=== PATIENT | female | born 1945 | race Caucasian/White ===

== ENCOUNTER 2018-10-13 13:34 | Outpatient (CLI) | payer MEDICARE, SELFPAY ==
--- NOTE | 2018-10-13 06:45 | DI.RAD_ITS ---
SYMPTOM/DIAGNOSIS: LUMBAR RADICULOPATHY C-ARM: Fluoroscopy Time: 43.2 seconds C-arm fluoroscopy was utilized by Dr. Hodgson. Please see Dr. Hodgson's procedure note. Hard copies show injection in neural foramen at what appears to be the L 4-5 level. Markers indicate this is the right side.
[2018-10-13 13:41] VITALS: BP 128/73; PULSE 73; RESP 20; TEMP 36.5; O2SAT 97
[2018-10-13] MEDS: methylPREDNISolone ACETATE 40 MG/ML VIAL IJ (14:14)
[2018-10-13] MEDS: Omnipaque 240 MG/ML 50 ML BTL IJ (14:15)
[2018-10-13 14:16] VITALS: BP 127/74; PULSE 68; RESP 16; O2SAT 96
--- NOTE | 2018-10-13 14:20 | PDOC.PAIN ---
Pain Clinic Procedure Note Current Active Problems Problem Status Onset Lumbar back pain with radiculopathy affecting right lower extremity Chronic LUMBAR / SACRAL TRANSFORAMINAL INJECTION ALECIA FRAUSTO has been referred to the [facility] for a transforaminal nerve root block and steroid injection. COMMENTS: Patient has back and right lower extremity pain to her foot. She previously had a right L4 transforaminal steroid injection which she said gave her good relief. That was over a year and half ago. Her symptoms are somewhat different now. Patient was interviewed and the medical record reviewed. There were no medical, pharmacologic, radiographic or other structural contraindications to attempting fluoroscopically guided transforaminal nerve root block and epidural steroid injection. Risks and expected side effects as well as potential benefit of the procedure were reviewed and voiced concerns addressed. The printed consent form was signed and witnessed. Standard time-out procedure was performed. Patient was placed in the prone position on the fluoroscopy table and automated blood pressure cuff and pulse oximeter applied. Fluoroscopy was utilized to identify the {right} neural foramen between L4 and 5 . A skin esequiel was made for the needle insertion site. A Chlorhexadine prep was carried out, and sterile drapes were applied. Local anesthesia was achieved in the skin and subcutaneous tissues. A 22 gauge curved tip spinal needle was then inserted, advanced with fluoroscopic guidance into the neural foramen, confirmed on the lateral view. After negative aspiration, 2 ml of Omnipaque 240 was injected confirming position in A/P and lateral views. This showed a good spread of dye transforaminally into the epidural space. There was no vascular update with contrast injection under continuous fluoroscopy and digital substraction. 60 mg of Depo-Medrol was injected, followed by 0.5 ml of 1% Xylocaine flush for the nerve root block, as well. There was no unusual discomfort expressed.The needle was withdrawn. The patient tolerated the procedure well. A Band-Aid was applied. Vital signs were stable throughout the procedure and were as recorded in nursing records. If given, dosages of intravenous drugs for anxiolysis and analgesia were documented in nursing records. Follow up plans and appointments were discussed. Post procedure instruction was given as documented in nursing records and patient was discharged in the care of an identified rivet driver. COMMENTS: Follow-up as needed. Would consider repeating if she gets good long-lasting relief otherwise would obtain an updated MRI since her symptoms are considered interlaminar with a catheter as an option as well. CC: Tanesha Cullen H
--- NOTE | 2018-10-13 14:23 | PDOC.PAIN_ITS ---
Pain Clinic Procedure Note Current Active Problems Problem Status Onset Lumbar back pain with radiculopathy affecting right lower extremity Chronic LUMBAR / SACRAL TRANSFORAMINAL INJECTION ALECIA FRAUSTO has been referred to the [facility] for a transforaminal nerve root block and steroid injection. COMMENTS: Patient has back and right lower extremity pain to her foot. She previously had a right L4 transforaminal steroid injection which she said gave her good relief. That was over a year and half ago. Her symptoms are somewhat different now. Patient was interviewed and the medical record reviewed. There were no medical, pharmacologic, radiographic or other structural contraindications to attempting fluoroscopically guided transforaminal nerve root block and epidural steroid injection. Risks and expected side effects as well as potential benefit of the procedure were reviewed and voiced concerns addressed. The printed consent form was signed and witnessed. Standard time-out procedure was performed. Patient was placed in the prone position on the fluoroscopy table and automated blood pressure cuff and pulse oximeter applied. Fluoroscopy was utilized to identify the {right} neural foramen between L4 and 5 . A skin esequiel was made for the needle insertion site. A Chlorhexadine prep was carried out, and sterile drapes were applied. Local anesthesia was achieved in the skin and subcutaneous tissues. A 22 gauge curved tip spinal needle was then inserted, advanced with fluoroscopic guidance into the neural foramen, confirmed on the lateral view. After negative aspiration, 2 ml of Omnipaque 240 was injected confirming position in A/P and lateral views. This showed a good spread of dye transforaminally into the epidural space. There was no vascular update with contrast injection under continuous fluoroscopy and digital substraction. 60 mg of Depo-Medrol was injected, followed by 0.5 ml of 1% Xylocaine flush for the nerve root block, as well. There was no unusual discomfort expressed.The needle was withdrawn. The patient tolerated the procedure well. A Band-Aid was applied. Vital signs were stable throughout the procedure and were as recorded in nursing records. If given, dosages of intravenous drugs for anxiolysis and analgesia were documented in nursing records. Follow up plans and appointments were discussed. Post procedure instruction was given as documented in nursing records and patient was discharged in the care of an identified school boat driver. COMMENTS: Follow-up as needed. Would consider repeating if she gets good long- lasting relief otherwise would obtain an updated MRI since her symptoms are considered interlaminar with a catheter as an option as well. CC: Tanesha Cullen H
[2018-10-13] MEDS: Bupivacaine 0.5% Pres-Free 10 ML VIAL IJ (14:25)
== END 2018-10-13 13:54 ==
PROVIDERS: PCP Internal Medicine; Visit Provider Anesthesiology Pain Medicine
DX: M54.17 Radiculopathy, lumbosacral region (principal)
CPT/HCPCS: 64483; 72100; J1030; Q9967

== ENCOUNTER 2019-01-20 11:29 | Outpatient (CLI) | payer MEDICARE, SELFPAY ==
--- NOTE | 2019-01-20 06:00 | DI.RAD_ITS ---
SYMPTOM/DIAGNOSIS: LUMBAR EPIDURAL STEROID INJECTION, LUMBAR RADICULOPATHY C-ARM: Fluoroscopy Time: 18.1 seconds Fluoroscopy was utilized by Dr. Glover during the performance of a lumbar epidural steroid injection. Please refer to the procedure report for complete details.
[2019-01-20 11:41] VITALS: BP 125/81; PULSE 66; RESP 18; TEMP 36.9; O2SAT 97
[2019-01-20] MEDS: Omnipaque 240 MG/ML 50 ML BTL IJ (12:14)
[2019-01-20] MEDS: methylPREDNISolone ACETATE 40 MG/ML VIAL IM (12:17)
[2019-01-20 12:18] VITALS: BP 136/70; PULSE 74; RESP 17; O2SAT 97
--- NOTE | 2019-01-20 12:24 | PDOC.PAIN ---
Pain Clinic Procedure Note Current Active Problems Problem Status Onset Lumbar back pain with radiculopathy affecting right lower extremity Lumbar Epidural Steroid Injection Procedure Note COMMENTS:Right sided low back and leg pain ALECIA FRAUSTO has been referred to the [facility] for lumbar epidural steroid injection. The patient was greeted by the nurse who verified patients name and . Patient was then taken to the fluoroscopy suite. The patient was interviewed and the medial record reviewed. There were no medical, pharmacologic, radiographic, or other structural contraindications to attempting fluoroscopically guided lumbar epidural steroid injection. Risks and expected side effects as well as potential benefits of the procedure were reviewed and voiced concerns expressed. The patient consent form was signed and witnessed. Standard patient time-out procedure was performed. The patient was placed in the prone position on the fluoroscopy table and automated blood pressure cuff and pulse oximeter applied. The skin entry point for entering/approaching the epidural space at the right side of the L5-S1 and marked. Following thorough chlorhexadine preparation of the skin and draping and 1% lidocaine infiltration of the skin entry point and subcutaneous tissues, a 18 gauge Touhy needle was placed under fluoroscopic guidance and with loss of resistance technique into the epidural space. Needle tip placement and depth were aided and confirmed by fluoroscopy. There was no paresthesia or return of blood or CSF through the needle. 1 cc's of Omnipaque 240 was injected with clear epidural spread confirmed with fluoroscopy. 80mg depomedrol was injected. There was not any unusual discomfort expressed by ALECIA FRAUSTO. Patient's vital signs were stable throughout the procedure and were as recorded in nursing records. Follow up plans and appointments were discussed with patient. Post procedure instruction was given as documented in nursing records and having met discharge criteria and was discharged from the [facility]. COMMENTS: If this procedure is helpful, it can be completed up to 3 times per 12 months.
== END 2019-01-20 11:49 ==
PROVIDERS: PCP Internal Medicine; Visit Provider Preventive Medicine Occupational Medicine
DX: M54.17 Radiculopathy, lumbosacral region (principal)
CPT/HCPCS: 62323; 72100; J1030; Q9967

== ENCOUNTER 2022-12-15 10:24 | Outpatient (CLI) | payer MEDICARE, SELFPAY ==
--- NOTE | 2022-12-15 09:30 | DI.RAD_ITS ---
Exam(s) XR KNEE RT 4V AP,LAT,TREE,PAT EXAM: XR KNEE RT 4V AP,LAT,TREE,PAT CLINICAL HISTORY: right knee pain. TECHNIQUE: 2D digital imaging was performed. Three views. COMPARISON: CR XR KNEE 3V RT from 07/14/2022 FINDINGS: BONES: Total knee prosthesis, unchanged in alignment appear. No acute fracture is present. No bony d estructive lesion is seen. JOINTS: A small joint effusion is seen. SOFT TISSUE: Normal. IMPRESSION: Stable appearance of total knee prosthesis. DATA REPOSITORY: RADIATION DOSE DELIVERED:
== END 2022-12-15 10:25 | disposition home or self-care (01) ==
LOC: DIORS 10:24
PROVIDERS: PCP Internal Medicine; Referring Provider Internal Medicine; Visit Provider Student in an Organized Health Care Education/Training Program
DX: Z96.651 Presence of right artificial knee joint (principal); T84.84XA Pain due to internal orthopedic prosthetic devices, implants and grafts, initial encounter
CPT/HCPCS: 20610; 99203; 73564

== ENCOUNTER 2022-12-15 13:39 | Outpatient (REF) | payer MEDICARE, SELFPAY ==
[2022-12-15 14:02] LABS: Crystals (BF) No Crystals seen
[2022-12-15 14:04] LABS: Clarity Clear; Nucleated Cells 260 uL (0)
[2022-12-15 14:11] LABS: Mononuclear Cells 96 %; Polynuclear Cells 4 %
== END 2022-12-15 13:40 | disposition home or self-care (01) ==
LOC: LBN 13:39
PROVIDERS: PCP Internal Medicine; Visit Provider Student in an Organized Health Care Education/Training Program
DX: T84.84XA Pain due to internal orthopedic prosthetic devices, implants and grafts, initial encounter (principal); Z96.651 Presence of right artificial knee joint
CPT/HCPCS: 87070; 87205; 89051; 89060

== ENCOUNTER 2023-01-02 00:19 | Outpatient (CLI) | payer MEDICARE, SELFPAY ==
--- NOTE | 2023-01-02 07:45 | DI.CT_ITS ---
Exam(s) CT LOWER EXTREMITY RT WO EXAM: CT LOWER EXTREMITY RT WO CLINICAL HISTORY: PAIN,?LOOSENING, HX TOTAL RT KNEE REPLACEMENT, PAIN, Z96.651, T84.84XA. TECHNIQUE: Imaging Protocol: Axial computed tomography images with coronal and sagittal reformatted images were created and reviewed. CONTRAST MATERIAL: None COMPARISON: X-rays from 12/15/2022 FINDINGS: There is a right knee prosthesis noted. No fractures evident. No obvious prominent joint effusion. There does not appear to be obvious luce ncy around the femoral component of the prosthesis. Subjacent to the tibial component there is subtle linear intraosseous lucency which is predominately laterally located. May represent loosening. A similar lucent area is not seen around this stem of t he prosthesis. The fibular head and neck appear unremarkable. IMPRESSION: Subtle evidence of possible loosening of the tibial component at the plateau level.. RADIATION DOSE DELIVERED: 417.96mGy.cm Total DLP DATA REPOSITORY: All CT scans at this facility are submitted to the National Radiology Data Registry (NRDR) Dose Index Registry (DIR) with the [employer] ([employer]). RADIATION OPTIMIZATION: All CT scans at this facility use at least one of these dose optimization te chniques: automated exposure control; mA and/or kV adjustment per patient size (includes targeted exa ms where dose is matched to clinical indication); or iterative reconstruction.
== END 2023-01-02 00:39 ==
LOC: DI 00:19
PROVIDERS: PCP Internal Medicine; Visit Provider Student in an Organized Health Care Education/Training Program
DX: T84.84XA Pain due to internal orthopedic prosthetic devices, implants and grafts, initial encounter (principal); Z96.651 Presence of right artificial knee joint
CPT/HCPCS: 73700

== ENCOUNTER 2023-02-26 04:59 | Outpatient (CLI) | payer MEDICARE, SELFPAY ==
[2023-02-26 16:17] LABS: HCT 39.9 % (36.0-46.0); HGB 13.2 g/dL (11.2-15.7); MCH 30.9 pg (27.0-33.0); MCHC 33.1 % (32.0-36.0); MCV 93 fL (80-95); MPV 9.2 fL (8.0-11.0); Platelet Count 244 10^3/uL (130-400); RBC 4.27 10^6/uL (3.93-5.22); RDW 12.3 % (11.7-14.6); RDW-SD 42.5 fL; WBC 5.78 10^3/uL (4.4-10.8)
[2023-02-26 17:03] LABS: Anion Gap 7.8 mmol/L (3-11); BUN 25 mg/dL (7-18); CO2 28.2 mmol/L (21.0-32.0); CREATININE 0.8 mg/dL (0.55-1.02); Calcium 9.4 mg/dL (8.5-10.1); Chloride 105 mmol/L (98-107); Estimated GFR 75.37 (mL/min/1.73m2); Glucose 96 mg/dL (74-106); Potassium 4.6 mmol/L (3.5-5.1); Sodium 141 mmol/L (136-145)
== END 2023-02-26 05:00 | disposition home or self-care (01) ==
LOC: LBO 04:59
PROVIDERS: PCP Internal Medicine; Visit Provider Student in an Organized Health Care Education/Training Program
DX: T84.032A Mechanical loosening of internal right knee prosthetic joint, initial encounter (principal); T84.84XA Pain due to internal orthopedic prosthetic devices, implants and grafts, initial encounter; Z01.818 Encounter for other preprocedural examination; Z96.651 Presence of right artificial knee joint; M25.561 Pain in right knee
CPT/HCPCS: 36415; 80048; 85027

== ENCOUNTER 2023-03-10 10:56 | Observation (INO) | payer MEDICARE, SELFPAY ==
[2023-03-10] VITALS (13 sets, daily range): BP systolic 101–208; BP diastolic 58–115; PULSE 59–78; RESP 14–20; TEMP 36–37.2; O2SAT 91–97; BMI 29.2
--- NOTE | 2023-03-10 | DI.RAD_ITS ---
Exam(s) XR KNEE RT 2V AP,LAT EXAM: XR KNEE RT 2V AP,LAT INDICATION: s/p Revision R TKA. COMPARISON: CR XR KNEE RT 4V AP,LAT,TREE,PAT from 12/15/2022 TECHNIQUE: 2D digital imaging was performed. Two views. Portable FINDINGS: Patient is status post revision of previously noted right knee prosthesis. The alignment appears sat isfactory. Residual post surgical air noted in soft tissues. DATA REPOSITORY: RADIATION DOSE DELIVERED:
[2023-03-10] MEDS: Celecoxib 200 MG CAP 400 MG PO (11:38)
[2023-03-10] MEDS: Acetaminophen 500 MG TAB 1000 MG PO ×2 (11:39→20:12)
[2023-03-10] MEDS: Gabapentin 300 MG CAP PO (11:39)
[2023-03-10] MEDS: Lactated Ringers 1,000 ML 80 ML IV ×2 (12:11→23:39)
--- NOTE | 2023-03-10 12:14 | W.ANESPRE ---
General Info Date of Service Date Performed: 03/10/23 Height: 4 ft 11 in Weight: 65.6 kg Body Mass Index (BMI): 29.2 Surgical Procedure: Operation Date: 03/10/23 14:40 Proposed Procedure Side Surgeon p Knee Total Revision, Attune Right Daryl Azul MD Meds Allergies and Home Medications Allergies Allergy/AdvReac Type Severity Reaction Status Date / Time epinephrine Allergy Unknown Racing Verified 03/10/23 11:23 Heart oxycodone Allergy Unknown Nausea Verified 03/10/23 11:23 Home Medication Medication Instructions Recorded multivitamin (Daily Value tablet) 1 ea PO DAILY 04/27/17 albuterol sulfate 90 mcg/actuation 2 puff inhalation .q4-q6 PRN 09/23/18 aerosol inhaler (Ventolin HFA) calcium carbonate 600 mg calcium 600 mg PO HS 09/23/18 (1,500 mg) tablet (Calcium) fluticasone propionate 50 1 spray intranasal DAILY PRN 09/23/18 mcg/actuation nasal spray,suspension lorazepam 1 mg tablet 1 mg PO Q8H PRN PRN 09/23/18 citalopram 20 mg tablet (Celexa) 20 mg PO BID 10/14/22 enoxaparin 40 mg/0.4 mL 40 mg subcut DAILY 10/14/22 subcutaneous syringe gabapentin 600 mg tablet 600 mg PO DAILY 10/14/22 omeprazole 40 mg capsule,delayed 40 mg PO DAILY 12/15/22 release pramipexole 0.75 mg tablet 0.75 mg PO HS 12/15/22 acetaminophen 500 mg capsule 500 mg PO Q6H PRN 02/26/23 ibuprofen 600 mg tablet 600 mg PO Q6H PRN 02/26/23 losartan 50 mg tablet 50 mg PO BID 02/26/23 vitamin B12 2,500 mcg-folic acid 1 tab PO DAILY 02/26/23 400 mcg disintegrating tablet Current Visit Medications: Current Medications Generic Name Dose Route Start Last Admin Trade Name Freq PRN Reason Stop Dose Admin Acetaminophen 1,000 mg 03/10/23 06:00 03/10/23 11:39 Acetaminophen 500 Mg Tab PO 1,000 mg PREOP CHECO Administration Celecoxib 400 mg 03/10/23 06:00 03/10/23 11:38 Celecoxib 200 Mg Cap PO 400 mg PREOP CHECO Administration Gabapentin 300 mg 03/10/23 06:00 03/10/23 11:39 Gabapentin 300 Mg Cap PO 300 mg PREOP CHECO Administration Tranexamic Acid 1,000 mg/ 60 mls @ 360 mls/hr 03/10/23 06:00 Sodium Chloride IVPB 03/10/23 18:00 PREOP CHECO Ringer's Solution 1,000 mls @ 80 mls/hr 03/10/23 06:00 03/10/23 12:11 IV 04/08/23 23:59 80 mls/hr INFUSION CHECO Administration Cefazolin Sodium/Dextrose 2 gm in 50 mls @ 100 mls/hr 03/10/23 06:00 Ancef Duplex IVPB 04/08/23 23:59 PREOP CHECO IV Miscellaneous Supplies 1 each 03/10/23 06:00 Iv Access IV 04/08/23 23:59 DIRECTED CHECO Sodium Chloride 0 ml 03/10/23 06:00 Normal Saline Flush 10 Ml Syr IV 04/08/23 23:59 PRN PRN Sodium Chloride 0 ml 03/10/23 06:00 Normal Saline 10 Ml Vial IJ 04/08/23 23:59 DIRECTED PRN Sterile Water 0 ml 03/10/23 06:00 Water,Injection,Sterile 10 Ml Vial IJ 04/08/23 23:59 DIRECTED PRN PFSH Active Problems Active Problems: Problem Status Onset Code Lumbar back pain with radiculopathy affecting right lower extremity M54.17 History of total right knee replacement 10/22/21 Z96.651 Painful total knee replacement, right T84.84XA, Z96.651 Loose right total knee arthroplasty T84.032A Medical History Medical History Arthritis Back pain Benign essential HTN Carpal tunnel syndrome of right wrist Cataract Chronic fatigue syndrome DVT (deep venous thrombosis) Hand joint pain Hip pain Hyperlipidemia 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 Low back pain Movement disorder Neck pain Neuropathy JANIA (obstructive sleep apnea) not on CPAP or BiPAP - has not had testing recently Overweight Pain in left knee Posterior rhinorrhea Pulmonary embolism Restless legs Right leg pain Right upper quadrant pain Sleep disorder Snoring Surgical History Surgical History ANKLE REPAIR (01/29/10) right ankle, ORIF BACK SURGERY H/O colonoscopy (10/24/05) H/O right knee surgery (05/28/10) meniscus HAND SURGERY Right DeQuervains release History of appendectomy 07/2021 History of arthroscopy of left knee 03/2018 History of carpal tunnel surgery (03/31/13) History of endoscopy History of kyphoplasty T12 JAW SURGERY Per pt. states they moved my lower jaw forward in the mid 80's Open Carpal Tunnel release S/P trigger finger release RRF, RMF, LMF Status post laparoscopy Ureteroneocystostomy with cystoscopy and ureteral stent placement Status post right foot surgery Right great toe joint Tonsillectomy Tobacco Smoking/Tobacco Use Status: Former Tobacco Use Alcohol Alcohol Intake: current Alcohol intake frequency: holidays/special occasions only Substance Use Substance use: Never Substance use type: does not use Vital Signs and Lab Results Vital Signs Most Recent Vital Signs in EMR: Most Recent Vital Signs Temp Pulse Resp BP Pulse Ox 36.7 C 65 17 208/87 H 97 03/10/23 11:40 03/10/23 11:40 03/10/23 11:40 03/10/23 11:40 03/10/23 11:40 Lab Results Blood Type / Crossmatch: No Data to Display Complete Blood Count: White Blood Count 5.78 10^3/uL (4.4-10.8) 02/26/23 15:30 Red Blood Count 4.27 10^6/uL (3.93-5.22) 02/26/23 15:30 Hemoglobin 13.2 g/dL (11.2-15.7) 02/26/23 15:30 Hematocrit 39.9 % (36.0-46.0) 02/26/23 15:30 Platelet Count 244 10^3/uL (130-400) 02/26/23 15:30 Complete Metabolic Panel: Sodium 141 mmol/L (136-145) 02/26/23 15:30 Potassium 4.6 mmol/L (3.5-5.1) 02/26/23 15:30 Chloride 105 mmol/L (98-107) 02/26/23 15:30 Carbon Dioxide 28.2 mmol/L (21.0-32.0) 02/26/23 15:30 BUN 25 mg/dL (7-18) H 02/26/23 15:30 Creatinine 0.8 mg/dL (0.55-1.02) 02/26/23 15:30 Est GFR (CKD-EPI 2020) 75.37 (mL/min/1.73m2) 02/26/23 15:30 Calcium 9.4 mg/dL (8.5-10.1) 02/26/23 15:30 Glucose 96 mg/dL (74-106) 02/26/23 15:30 Liver Function Panel: No Data to Display Coagulation Panel: No Data to Display Cardiac Panel: No Data to Display Arterial Blood Gas: No Data to Display Venous Blood Gas: No Data to Display Pancreas Panel: No Data to Display Thyroid Panel: No Data to Display Infectious Disease: No Data to Display Blood Cultures: No Data to Display Toxicology Panel: No Data to Display Anesthesia Assessment and Plan Anesthesia History Personal History: PONV Family History: No Family History of Anesthesia Complications and Family History Unknown Exercise Tolerance Exercise Tolerance: Metabolic Equivalents>4 Pertinent Negatives Pertinent Negatives: No Symptoms of GERD, No Major Cardiovascular Symptoms or Complaints, No Major Pulmonary Symptoms or Complaints and No History of CVA/TIA Cardiac & Pulmonary Exam Cardiac Exam: Normal S1/S2 Heart Sounds Pulmonary Exam: Clear Bilateral Breath Sounds Cardiac and Pulmonary Comment:: DVT and sudhir PEs postop Implantable Cardiac Device Does patient have a Pacemaker or an ICD?: No Airway Exam Known Difficult Airway: No Mallampati Class: 2 Mouth Opening: Normal (> 3cm) Thyromental Distance: Greater than 3 cm Neck Range of Motion: Limited ROM Neck Circumference: Normal Teeth Condition: Normal Dentition ASA Classification ASA Score: ASA 2 Emergency Case?: No NPO Status NPO Status: NPO Clears >2 hours, Solids >8 hours and NPO Clear Liquids>2 hours Anesthesia Plan Resuscitation Status: Full Code Anesthesia Technique: Spinal Anesthesia Airway Planned: Natural Airway Pain Management: Surgeon and patient request nerve block Monitors Used: Standard Monitors Preoperative Comments:: GETA back up
[2023-03-10] MEDS: ceFAZolin 2 GM/50 ML BAG IVPB (13:00)
--- NOTE | 2023-03-10 13:41 | W.ANESNERVE ---
Nerve Block Single Injection Procedure Date and Time Date Performed: 03/10/23 Procedure Start: 12:30 Location Where Procedure Performed Procedure Location: Day Surgery Unit Reason Performed: Postoperative Analgesia Requesting Provider: Daryl Azul Timeout Performed Timeout Performed: Yes Monitoring Used ECG, Blood Pressure, SpO2 and See EMR for corresponding vital signs Sterility Sterility: Hand Hygiene, Surgical Cap, Surgical Mask, Sterile Gloves, Sterile Drape/Sheet and Chlorhexidine Sedation Given During Procedure Sedation Given (Indicate Dose Given): Versed IV Dose:: 2 mg Patient Mental Status Patient Mental Status: Sedate with meaningful communication Nerve Block 1st Nerve Block: Laterality: Right Block Type: Adductor Canal Ultrasound Image Saved?: Yes Needle / Catheter Used: 100mm SonoPlex II Local Anesthetic Bolus (Indicate Dose Given): Lidocaine used for local infiltration of skin, Injected in 3-5ml increments after negative blood aspiration and Bupivacaine 0.25% Dose:: 15 ml Additives (Indicate Dose Given): None Ultrasound: Sterile probe cover and gel used Nerve Stimulator: Not Used Paresthesia: None Procedure Tolerated: No Complications and Patient tolerated well Procedure Outcome: Successful Performed By: Dana Aguero
--- NOTE | 2023-03-10 16:33 | ROE_ITS ---
Date of service: 03/10/23 Time of Service: 13:20 Operative Note Operative Note DATE OF PROCEDURE: 03/10/23 PRE-OP DIAGNOSIS: Painful Right Knee Replacement with Arthrofibrosis POST-OP DIAGNOSIS: other (Loose tibial component, subtle horizontal fracture of posterior tibia) PROCEDURE: Revision right knee replacement, all 3 components SURGEON: Daryl Azul KNITTING MACHINE TENDER: Olga López ANESTHESIA TYPE: Spinal Refer to Anesthesia Record ESTIMATED BLOOD LOSS: 300 PATHOLOGY: none sent TOURNIQUET TIME: 34 COMPLICATIONS: Other (Small horizontal fracture of proximal-posterior tibia, un clear if present prior to surgery or from removal of component) Patient was transported to: PACU Patient's condition: stable Implants: Depuy Attune Revision Femoral Component, Size 4 - 4mm distal offset, Medial and Lateral - 4mm posterior offset, Medial and Lateral - 35mm cementless sleeve - [id number] cementless stem Depuy Attune Revision Rotating Platform Tibial Component, Size 4 - 31mm cementless sleeve - [id number] cementless stem Depuy Attune Patella Component, 32mm Indications: I have seen Bri in clinic for symptoms of a painful and quite stiff right knee replacement. [place] has exhausted nonoperative methods and was having significant limitations in daily function and desired better function and less pain. I discussed the technical details of a revision knee replacement. I explained the risks of the procedure to include, but not limited to, bleeding, infection, pain, stiffness, fracture, damage to nerves and vessels, damage to muscles and tendons, loosening, need for repeat procedure, blood clot and cardiopulmonary demise. Despite these risks, Bri elected to proceed. Findings: There was some loosening, debonding of the cement from the tibia. There was dense adhesive scar tissue seen throughout. After removal of the tibial tray there was a subtle fracture noted of the posterior lip of the proximal tibia - unclear if present previously or caused during implant removal. There was significant remnant thickness of the patella with bone overgrowth over the lateral edge. Aggressive synovectomy was performed and a revision knee replacement was performed of the tibia, femur, and patella. Procedure Description: Bri was greeted in the preoperative holding area where the correct side was identified and marked. The consent was reviewed with the patient and signed. The history and physical was updated. All questions were answered. Preoperative mediacations were administered: Acetaminophen 1000mg, Celebrex 400mg, and Gabapentin 300mg. An adductor canal block was then administered by the anesthesia team. Bri was taken back to the operating room. A spinal anesthestic was then administered. The patient was placed into the supine position on the operating room table. A nonsterile tourniquet was placed high onto the leg but only used for cementing. Posts were placed for positioning during the procedure. All bony prominences were well padded. Prophylactic antibiotics in the form of Cefazolin were administered. 1g of Tranxemic Acid was given intravenously within 30 minutes of incision. The right leg was then prepped with Chloraprep and draped in a standard fashion with impervious stockinette. A second prep with Chloraprep was performed prior to application of Iodine impregnated skin protection. A timeout to confirm correct identity, side and site, procedure, allergies, anesthesia, and medical concerns was performed. With the knee in some flexion, the previous midline incision was incised. Full thickness skin flaps were raised once the extensor mechanism was encountered. These were raised medially and laterally. Any bleeding was controlled with electrocautery. Once the extensor mechanism was fully exposed, a medial parapatellar arthrotomy was performed in a flexed position. There is no defect noted of the extensor mechanism except for some shortening of the quadriceps tendon. All bleeding from the arthrotomy and the geniculate arteries was coagulated. A medial subperiosteal peel was performed with electrocautery to the midcoronal plane. The entire medial tibial plateau was exposed. There was dense adhesive scar tissue throughout the entirety of the knee. An aggressive synovectomy was performed utilizing 2 Allis and 2 Alberta clamps throughout the entirety of the knee. This was quite adherent anteriorly where I released the overlying synovium and attachments from the anterior femur to free up the anterior pouch. Additionally there is dense tissue seen in the gutters medially and laterally which was resected after protecting surrounding collateral ligaments and tissues. This allowed better mobility of the knee and better visualization of the implants and the implant?bone interface. There was no apparent infection. There was no purulence. The polyethylene was removed with an osteotome and it did show pitting within the polyethylene irregularity that was not expected to be seen. There is no gross loosening of the components apparent. Starting with the femur, I used a flexible single-sided chisel to free the implant from the underlying bone. This was done around the entirety of the femoral component. I then utilized a bone tamp to remove the femoral component. There was no significant bone loss except around the box, medial aspect of the lateral femoral condyle and lateral aspect of the medial femoral condyle. Attention was then turned to the tibia. Once again I utilized flexible osteotomes. There is no significant adherence of the implant medially. There was some laterally and then some more posteriorly. I worked systematically around the tibial component trying to free up cement. I then utilized a bone tamp and osteotome to remove the tibial component. This came out with no significant adherence of the cement to the implant anteriorly but there was some posteriorly. With the implant removed the tibia was inspected. There was a crack seen in the posterior tibia. This ran about 1 cm in depth and ran horizontally across the back of the tibia, approximate 50% of the width of the posterior tibia. The bone in this area was flexible but it was not truly displaced nor unstable. This would be bridged with the next implant and therefore I did not investigate it much more to either determine instability or try to fix it. I focused on removing extra cement from within the tibia. This was done utilizing a set of osteotomes and rongeur's. Once all the cement was removed both the femur and the tibia were irrigated with the pulse lavage to ensure that all cement components were removed from the bone. I then reamed the tibia utilizing a machine shorthand teacher up to size 14 mm reamer. The proximal tibia was then broached for a sleeve, up to size 31 mm. The trial component was inserted, rotation set and locked and keel punched. Attention was then turned to the femur. Once again, the canal was reamed with a machine shorthand teacher. This was taken out to a size 12 mm where there was notable interference of the reamer. Once again, I broached for a sleeve, size 35 mm, planning to distalize the femur 4 mm. With the sleeve in position the distal femur was cut to a flat surface. Extension and flexion gaps were then balanced at 10 mm of polyethylene thickness. The flexion gap was utilized to determine rotation for the femoral component which was pinned into position. Cutting block was utilized to prepare the distal femur. There was some gap of the posterior condyles so 4 mm augments were cut. The remainder of the cuts were performed including the notch cut without difficulty. Trial components were then placed and the knee was taken through range of motion which showed excellent stability to extension, flexion, mid flexion. There was excellent range of motion. The patella was tracking although the patella did have deformity to it. The knee was then brought into extension and the patella was investigated. This showed the patellar component was overridden by bone laterally and the patella had significant thickness, approximately 19 mm. Using a freehand technique, this was resected to a flat surface with at least 13mm of thickness remaining. Any remaining cement from the lug holes was removed. The size 32 patella fit the best. This was oriented and then clamped into position. The lugs were drilled. The trial components were removed. The final components, except for the polyethylene were opened on the back table. The periosteal and capsular tissues, especially posteriorly, around the knee were then systematically injected with a periarticular cocktail consisting of 246mg of Ropivacaine, 0.5mg of Epinephrine, 0.08mg of Clonidine, and 30mg of Ketorolac, diluted to 100cc.. The tourniquet was then inflated to 275mmHg. The knee was thoroughly irrigated with a pulse lavage and dried. On the back table, the implants were opened. The femoral and tibial components were assembled with the correct amount of torque. The cement was mixed. 2 batches of medium viscosity cement were prepared with vacuum assistance. After the cement was ready a small amount was placed on to the back side of the tibial component at the keel but not onto the porous coating of the sleeve. The posterior aspect of the femoral component was also coated cement up to the level of the sleeve. Cement was manual pressurized and impregnated into the cut surface of the tibia ensuring none mated into the canal. The tibial component was then inserted into the cut surface and impacted into position. Excess cement was removed and the component was reimpacted. Again, excess cement was removed and our attention was then turned to the femur. The femoral cut surface was once again dried and cement was manually impacted into the cut surface. The femoral component was lined with the lug holes and impacted. Excess cement was removed. It was ensured to be down against the cut surface. The trial poly ethylene was then inserted and the leg was brought out into full extension for the duration of the cement curing process, approximately 18min. Cement was lastly manually impacted into the cut surface of the patella and the patellar button was clamped into position and held. During this process attention was turned to the gutters of the knee and for all interfaces for any excess cement. While the cement was hardening, the knee was irrigated with Surgiphor Betadine solution. This was allowed to sit in the knee for 3 minutes and then it was thoroughly irrigated with saline. After the cement had finally cured, approximately 18min, the clamp was removed from the patella and the knee was taken through range of motion. A size 10mm polyethylene component provided the best range of motion and stability with less than 2mm gapping with medial and lateral stress and full extension without significant hyperextension. The patella was tracking with a no-thumbs technique. The trial poly was removed and once again the knee was checked for any loose, excess, or errant cement. The poly component was then inserted and impacted into position after cleaning and drying the tibial tray. The capsule was then reapproximated with a No. 1 Vicryl at multiple locations. The capsule was finally closed with a No. 2 Stratafix, barbed suture. The tourniquet was then released and the arthrotomy appeared watertight without significant bleeding. Deep tissues were then reapproximated with 0 Vicryl and 2-0 Vicryl. The skin was closed with a running 3-0 Monocryl in a subcuticular fashion. This was reinforced with skin glue. A Mepilex silver dressing was applied along with a [id number] ALLYSON wrap. A CryoCuff was applied. Bri was transferred to the hospital bed without difficulty an suffering no apparent complication. Bri has a good prognosis. Physical therapy will start today and without restrictions, weight-bearing as tolerated. Rivaroxaban 10 mg daily will be used for DVT prophylaxis given history of previous clot.
[2023-03-10] MEDS: Droperidol 5 MG/2 ML VIAL 0.625 MG IVP (17:10)
[2023-03-10] MEDS: Ketorolac 15 MG/ML VIAL IVP (17:22)
--- NOTE | 2023-03-10 17:27 | PT.INNT ---
PT Notes Visit Reasons: Painful right TKA Patient is still in PACU as of 17:27 PM. Will plan to see patient after breakfast, as ordered.
--- NOTE | 2023-03-10 17:28 | W.ANESPOSTOP ---
Postoperative Evaluation Date, Time and Location Date Performed: 03/10/23 Time Performed: 17:28 Patient Location: PACU Vital Signs Most Recent Imported Vital Signs: Most Recent Vital Signs Temp Pulse Resp BP Pulse Ox 36.5 C 62 16 117/75 97 03/10/23 17:15 03/10/23 17:25 03/10/23 17:25 03/10/23 17:25 03/10/23 17:25 Pain Score Most Recent Pain Score: Most Recent Pain Score Pain Level 3 03/10/23 17:25 Assessment Mental Status: Awake (Alert & Oriented to Patient Baseline) Airway and Respiratory Function: Patent airway with normal (patient baseline) respiratory exam Cardiovascular Function: Hemodynamically Stable Hydration Status: Adequately Hydrated Nausea & Vomiting: No Nausea or Vomiting Pain: Pain is tolerable per patient Peripheral Nerve Block: Regional nerve block not resolved at time of post operative discharge
[2023-03-10] MEDS: ceFAZolin 1 GM/50 ML BAG IVPB (18:34)
[2023-03-10] MEDS: Celecoxib 200 MG CAP PO (20:12)
[2023-03-10] MEDS: Citalopram 20 MG TAB PO (20:12)
[2023-03-10] MEDS: Losartan 50 MG TAB PO (20:12)
[2023-03-10] MEDS: Pramipexole 0.5 MG TAB 0.75 MG PO (21:39)
[2023-03-10] MEDS: Calcium Carbonate 1.5 GM TAB PO (21:39)
[2023-03-10] MEDS: LORazepam 1 MG TAB PO (23:46)
[2023-03-11] MEDS: ceFAZolin 1 GM/50 ML BAG IVPB ×2 (02:25→10:24)
[2023-03-11 03:40] VITALS: BP 107/62; PULSE 63; RESP 16; TEMP 36.7; O2SAT 93
[2023-03-11 07:19] LABS: HCT 28.6 % (36.0-46.0); HGB 9.7 g/dL (11.2-15.7); MCH 31.5 pg (27.0-33.0); MCHC 33.9 % (32.0-36.0); MCV 93 fL (80-95); MPV 9.8 fL (8.0-11.0); Platelet Count 186 10^3/uL (130-400); RBC 3.08 10^6/uL (3.93-5.22); RDW 12.1 % (11.7-14.6); RDW-SD 41.5 fL; WBC 11.88 10^3/uL (4.4-10.8)
[2023-03-11 07:33] LABS: BUN 24 mg/dL (7-18); CREATININE 0.8 mg/dL (0.55-1.02); Calcium 8.6 mg/dL (8.5-10.1); Chloride 106 mmol/L (98-107); Glucose 142 mg/dL (74-106); Potassium 4.7 mmol/L (3.5-5.1); Sodium 138 mmol/L (136-145)
[2023-03-11 07:43] VITALS: BP 129/66; PULSE 56; RESP 18; TEMP 36.3; O2SAT 95
[2023-03-11] MEDS: Omeprazole 20 MG CAPCR 40 MG PO (08:06)
[2023-03-11] MEDS: Gabapentin 600 MG TAB PO (08:06)
[2023-03-11] MEDS: Rivaroxaban 10 MG TABLET PO (08:06)
[2023-03-11] MEDS: Losartan 50 MG TAB PO (08:06)
[2023-03-11] MEDS: Multivitamin TAB 1 TAB PO (08:07)
[2023-03-11] MEDS: Celecoxib 200 MG CAP PO (08:07)
[2023-03-11] MEDS: Acetaminophen 500 MG TAB 1000 MG PO (08:07)
[2023-03-11] MEDS: Dexamethasone 4 MG TAB PO (08:07)
[2023-03-11] MEDS: Citalopram 20 MG TAB PO (08:07)
--- NOTE | 2023-03-11 09:45 | PT.INIE ---
PT Notes Visit Reasons: Painful right TKA Physical Therapy Inpatient Initial Evaluation Date: 03/11/2023 Referring Doctor: SHANIQUE Parrish PT Orders: PT CONSULT: S/p Ortho's Ortho surgery Precautions: Fall. Standard. WBAT on right LE with AD. Patient Profile/Admitting Diagnosis: Bri is a 78-year-old female with painful loose right TKA and arthrofibrosis and is status post right total knee arthroplasty revision on postoperative day 1. 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 Low back pain Movement disorder Neck pain Neuropathy JANIA (obstructive sleep apnea) not on CPAP or BiPAP - has not had testing recently Overweight Pain in left knee Posterior rhinorrhea Pulmonary embolism Restless legs Right leg pain Right upper quadrant pain Sleep disorder Snoring Surgical History?(Updated 02/26/23 @ 14:23 by Dunia Barbosa) ANKLE REPAIR (01/29/10) right ankle, ORIF BACK SURGERY H/O colonoscopy (10/24/05) H/O right knee surgery (05/28/10) meniscus HAND SURGERY Right DeQuervains release History of appendectomy 07/2021 History of arthroscopy of left knee 03/2018 History of carpal tunnel surgery (03/31/13) History of endoscopy History of kyphoplasty [id number] SURGERY Open Carpal Tunnel release S/P trigger finger release RRF, RMF, LMF Status post laparoscopy Ureteroneocystostomy with cystoscopy and ureteral stent placement Status post right foot surgery Right great toe jointTonsillectomy Social History/Home Situation: Lives with in a private home with 3 steps to enter with rails that are far apart. Bedroom is on the second floor but can stay on the first floor as she recovers. Independent with all mobility ADL performance although had been having difficulty walking due to increasing pain in the right knee Equipment Owned/DME: FWW, SPC Subjective: Reported being nauseous and mildly sick to her stomach when she sat up. Agreeable to trying out walking after finding out vital signs were within normal limits. Reported for?5/10 pain in the right knee at rest and with weightbearing. Objective: General Observation: Supine in bed. IV through the left UE. ALLYSON wraps to right LE. TEDS to left leg. Cryocuff to right knee. Mental Status: Alert and oriented as to person, place, time, and purpose. Able to pay attention, focus, and respond appropriately. Pain: As above Vital Signs: BP upon sitting up 123/82 mmHg, HR 72 bpm, oxygen saturation at 94% on room air ROM: Right Lower Extremity: Hip flexion WFL. Hip abduction WFL. Knee flexion 20 degrees to 90 degrees actively with pain at end range of extension and flexion. Ankle dorsiflexion WFL. Ankle plantarflexion WFL. Left Lower Extremity: Hip flexion WFL. Hip abduction WFL. Knee flexion WFL. Ankle dorsiflexion WFL. Ankle plantarflexion WFL. Strength: Right Lower Extremity: Hip flexors 4/5. Hip abductors 4/5. Knee flexors 3-/5. Knee extensors 3-/5. Ankle dorsiflexors 4-/5. Ankle plantarflexors 4-/5. Left Lower Extremity: Hip flexors 5/5. Hip abductors 5/5. Knee flexors 4/5. Knee extensors 4/5. Ankle dorsiflexors 4/5. Ankle plantarflexors 4/5. Bed Mobility/Transfers: Supine to sit standby assist with minimal cueing provided for using the hands for needed support, HOB at 30 degrees, complained of nausea Sit to stand contact-guard assist with verbal cueing provided to push off from edge of bed for safety Stand to sit contact-guard assist with verbal cueing needed to reach behind for armrests and to safely back up onto chair Bed to reclining chair contact-guard assist with verbal cueing needed to B hands for support Gait: Facilitated safe and correct performance of heel toe step through gait pattern on BLE with WBAT on the right LE using front wheeled walker with standby assist provided covering 225 feet to the level surface with verbal cueing provided for limb advancement, correct gait pattern, AD management, and posture. Balance: Static Sitting: Normal Dynamic Sitting: Normal Static Standing: Fair Dynamic Standing: Fair Special Tests: Mobility Limitations Standardized Measure [facility] AM-PAC 6 clicks Basic Mobility Inpatient Short Form: Raw Score: 20 CMS Score: 36% deficit Informed Consent/Education: Patient was instructed in purpose of PT consult and plan of care. Agreeable to proceed with established PT POC to achieve personal goals. Advised patient about strategies for prevention of a right knee flexion contracture, exercise frequency, and overall safety using AD in anticipation of outpatient TKA rehab in 2 weeks. THERA ACT: Trained patient with correct performance of exercises below to maximize motor control, joint flexibility, soft tissue extensibility of the knee musculature. Access Code: [email or web address] URL: [email or web address] Date: 12/23/2022 Prepared by: Kellee Stringer Exercises - Supine Quad Set - 1 x daily - 7 x weekly - 1 sets - 10 reps - 5 hold - Supine Heel Slide - 1 x daily - 7 x weekly - 1 sets - 10 reps - 5 hold - Supine Ankle Pumps - 1 x daily - 7 x weekly - 1 sets - 10 reps - 5 hold - Small Range Straight Leg Raise - 1 x daily - 7 x weekly - 1 sets - 10 reps - 5 hold - Seated March - 1 x daily - 7 x weekly - 1 sets - 10 reps - 5 hold Assessment: Patient requires the use of a front wheeled walker for all mobility ADL performance to maximize independence and reduce fall risk. Mobility performance this morning mildly limited by nausea and pain level. Patient presents with clinical signs and symptoms consistent with current/admitting diagnoses that have resulted to mobility limitations, gait instability, generalized weakness, and overall ADL decline as demonstrated by the following impairment level findings: 1. Decreased strength to R knee major muscle groups 2. Impaired sitting/standing balance 3. Impaired activity tolerance 4. Limitation of joint range of motion in R knee 5. Pain as above Impairments are contributing to the following functional limitations: 1. Decline in bed mobility skills 2. Decline in transfer skills 3. Difficulty with ambulation without assistive device and physical assistance 4. Increased completion time for mobility ADL performance 5. Increased risk for falls 6. Difficulty with managing steps alone safely Patient is assessed as a 84548 moderate complexity based on the following: History: [id number] with past medical history as indicated above Examination: Demonstrable impairment in strength, balance, and mobility level with underlying impairments and functional limitations as exhibited above as well as deficit score of 36% utilizing the [facility] Mobility Inpatient Short Form Presentation: Evolving Decision Makin moderate complexity Goals: Goals X1 week 1. Supine-Sit independent 2. Sit-Supine independent 3. Sit-Stand independent 4. Stand-Sit independent with FWW 5. Bed-Chair independent with FWW 6. Chair-Bed independent with FWW 7. Independent gait on level surface with use of FWW for at least 300 feet without report of pain nor dyspnea 8. Independent stair negotiation while holding onto 1 rail and using SPC for at least 3 steps without report of pain nor dyspnea 9. Independent with home exercise program 10. Good static and dynamic standing balance/tolerance Plan of Care/Treatment Plan: 1-2x/day, 7 days/week x 1 week. Plan of care has been reviewed with the SOCIAL STUDIES DEPARTMENT CHAIR providing the service under Physical Therapy direction. Initiate Physical Therapy intervention for pain management as needed, strengthening, bed mobility, transfers, gait, stairs, balance training, and use of assistive device. DISCHARGE RECOMMENDATIONS: [] Home with no services [] [X] Home with services. Home when medically cleared by orthopedic surgeon. Recommend outpatient PT services in order to optimize functional mobility outcomes and facilitate return to independent community ambulation without an assistive device. [] Home with outpatient PT [] [] SNF for continued rehabilitation [] [] Snf Care [] [] SNF versus LTC based on ability to participate and progress [] TREATMENT CODE/TIME: 78849 x 20 minutes for 1 unit, 57849 x 26 minutes for 2 units beginning at 9:45 AM. Thank you for the opportunity to participate in the care of this patient. Kellee Stringer PT, DPT, CLT [facility] [place], [place]
--- NOTE | 2023-03-11 10:55 | INITIAL_ITS ---
Date of service: 03/11/23 Time of Service: 10:56 Care Management Initial Assmt Initial Assessment REASON FOR HOSPITALIZATION:: painful right total knee replacement PREVIOUS FUNCTIONAL STATUS/SOCIAL/FAMILY SUPPORTS:: Bri lives in [place], [place] with her Leodan. She has one son and 5 step children and she describes them as a close and supportive family. Bri is independent at baseline and and receives no community services. CURRENT FUNCTIONAL STATUS:: Bri was sitin up in a chair waiting for her to transport her home. She denied the need for any services at home. Bri did have questions about one of her new medications. CM was able to conatct the pharmacy and obtain the needed information. ADVANCE DIRECTIVES:: none on file Has patient been provided with info about the portal/API?: Yes Did the patient sign up for the portal?: No CODE STATUS:: Full Code INSURANCE COVERAGE / FINANCIAL ISSUES:: [facility] Medicare Replacement CURRENT HOME/COMMUNITY SERVICES/EQUIPMENT:: none currently PRIMARY CARE PHYSICIAN:: Tanesha Cullen POTENTIAL DISCHARGE NEEDS:: follow up with Orthopedic Surgeon, PCP and plan of care possible outpatient or home health PT PATIENT/FAMILY EDUCATION NEEDS:: Review of discharge instructions, activity, limitations, follow up plan, discuss Ask Me Tree TRANSPORTATION:: via private vehicle PLAN:: Bri will be discharged home with new orders for outpatient PT. She will follow up with her orthopedic surgeon and her plan of care and transport with family. 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 Low back pain Movement disorder Neck pain Neuropathy JANIA (obstructive sleep apnea) not on CPAP or BiPAP - has not had testing recently Overweight Pain in left knee Posterior rhinorrhea Pulmonary embolism Restless legs Right leg pain Right upper quadrant pain Sleep disorder Snoring Surgical History ANKLE REPAIR (01/29/10) right ankle, ORIF BACK SURGERY H/O colonoscopy (10/24/05) H/O right knee surgery (05/28/10) meniscus HAND SURGERY Right DeQuervains release History of appendectomy 07/2021 History of arthroscopy of left knee 03/2018 History of carpal tunnel surgery (03/31/13) History of endoscopy History of kyphoplasty T12 JAW SURGERY Per pt. states they moved my lower jaw forward in the mid s Open Carpal Tunnel release S/P trigger finger release RRF, RMF, LMF Status post laparoscopy Ureteroneocystostomy with cystoscopy and ureteral stent placement Status post right foot surgery Right great toe joint Tonsillectomy Social History (Updated 09/29/18 @ 11:48 by Jaycee Shah RN) Smoking/Tobacco Use Status: Former Tobacco Use Quit Date: 06/01/82 Smoking risk assessment performed?: Yes Alcohol Intake: current Alcohol Intake frequency: holidays/special occasions only Drug use: Never Substance use type: does not use Household members: spouse Housing: house Number of Children: 1 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
[2023-03-11 11:05] VITALS: BP 126/55; PULSE 66; RESP 18; TEMP 37.1; O2SAT 93
--- NOTE | 2023-03-11 11:21 | DSE_ITS ---
Date of service: 03/11/23 Time of Service: 11:21 DS: Diagnosis Discharge Diagnosis (1) History of total right knee replacement: Status: Chronic (2) Painful total knee replacement, right: Status: Acute (3) Loose right total knee arthroplasty: Status: Acute Discharge Plan Disposition Patient Disposition: Home Condition: Good Discharge Details Reason For Visit: Painful right TKA Admit Date/Time: 03/10/23 10:56 Admit Provider: Daryl Azul Attending Provider: Daryl Azul Primary Care Provider: Tanesha Cullen Hospital Course Hospital Course: Patient was admitted to the medical/surgical floor following the procedure. The surgery was tolerated well without any notable medical, surgical, or anesthetic complications. Mobilization began postoperatively. She was voiding spontaneously. Vitals were stable. Physical therapy worked with the patient and was cleared for discharge home. No acute medical issues. Pain was controlled on oral regimen. Home Meds and New Rx's Prescriptions: New celecoxib [Celebrex] 200 mg capsule 200 mg PO BID PRNQty: 60 0RF Rx Instructions: Take one tablet twice daily for pain and inflammation aspirin 81 mg tablet,delayed release (DR/EC) 81 mg PO BID 18 Days Qty: 36 0RF Rx Instructions: Take one tablet twice daily acetaminophen 500 mg tablet 1,000 mg PO Q8H PRN Qty: 90 0RF Rx Instructions: Take two tablets up to every 8 hours as needed for pain hydromorphone 2 mg tablet 2 mg PO Q4H PRNQty: 18 0RF Rx Instructions: Take one tablet up to every 4 hours as needed for severe postoperative pain docusate sodium [Colace] 100 mg capsule 100 mg PO BID Qty: 30 0RF Xarelto 10 mg tablet 10 mg PO DAILY Qty: 11 0RF Rx Instructions: Take one tablet daily for a total course of 12 days Continued calcium carbonate [Calcium 600] 600 mg calcium (1,500 mg) tablet 600 mg PO HS fluticasone propionate 50 mcg/actuation spray,suspension 1 spray CORNELL DAILY PRN pramipexole 0.75 mg tablet 0.75 mg PO HS omeprazole 40 mg capsule,delayed release(DR/EC) 40 mg PO DAILY losartan 50 mg tablet 50 mg PO BID Rx Instructions: 1 TAB QAM, 1/2 TAB QHS vitamin S98-untel acid 2,500-400 mcg tablet,disintegrating 1 tab PO DAILY multivitamin [Daily Value] 1 EACH tablet 1 ea PO DAILY lorazepam 1 mg tablet 1 mg PO Q8H PRN PRN citalopram [Celexa] 20 mg tablet 20 mg PO BID gabapentin 600 mg tablet 600 mg PO DAILY Patient Comments: 1/2 tablet in AM, 1 tablet at night. Discontinued ibuprofen 600 mg tablet 600 mg PO Q6H PRN acetaminophen 500 mg capsule 500 mg PO Q6H PRN enoxaparin 40 mg/0.4 mL syringe 40 mg subcut DAILY Discharge Instructions Additional Instructions: Total Knee Revision Discharge Instructions Activity: The most important activity is to walk and to work on gentle motion (both flexion and extension). You should try to take short walks a few times a day. It is important that when resting you work on keeping the knee straight. Avoid putting a pillow behind the knee as this will encourage flexion. Work on range of motion exercises as provided by Physical Therapy. - Start outpatient physical therapy within 2 weeks. - You should wear the ERIC hose on both legs for 2 weeks. You may remove these at night. You may also use any compression sock in place of the ERIC hose. - Utilize [employer] to review exercises, see videos on exercises and obtain basic information pertaining to your surgery and your recovery. Dressing: Remove the Jerson wrap by 2 days after your surgery and put on the ERIC stocking given to you from the hospital. Keep the surgical dressing (underneath the JERSON wrap) in place for at least one week. After the first week it may be removed and replaced with light gauze and tape or nothing. The wound and dressing may get wet after 3 days but avoid soaking the dressing or otherwise it will need to be changed. Many people prefer covering the dressing with cling w rap (saran wrap) to minimize it from getting soaked. If it gets wet, just pat dry. If it starts to peel off then it will need to be changed. Medications: - You should take Tylenol and anti-inflammatory Celebrex as your primary pain control medications. If the Celebrex is too expensive or not covered, please call the office for another alternative (Advil/Ibuprofen or Naproxen/Aleve) - You have been prescribed a stronger pain medication Hydromorphone for breakthrough pain, take as needed as prescribed. - You take a stomach acid reduction agent Omeprazole at baseline - continue with this medication to help reduce stomach acid and reflux. - You take Gabapentin at baseline - continue to take at night for restlessness and nerve pain. - You will be taking Xarelto 10 mg daily for 12 day course (receive one dose while inpatient and be discharged with prescription for remaining 11 days) then will switch to Aspirin 81 mg twice a day for DVT prevention. - You have also been prescribed Decadron to take to control post-operative nausea and pain. You will start this tomorrow. - If you have constipation you should take Colace (which has been prescribed) or Miralax (which is available [id number]). It takes most people 3-4 days to have a bowel movement. Follow-up: 2 weeks If you have any acute concerns or questions, please do not hesitate to contact the office at [phone]. You may contact Dr. Azul with any questions after hours through the hospital at [phone] or on his cell phone at [phone]. Stand Alone Forms: Nursing Discharge Form Referrals: Tanesha Cullen [Primary Care Provider] - 03/30/23 12:20 pm Daryl Azul MD [ [facility] STAFF PHYSICIAN] - 03/23/23 11:15 am Activity:: Activity as Tolerated Equipment/Supplies:: Walker Diet:: As Tolerated Discharge Orders Discharge Orders: Discharge Order (Routine); Ordered 03/11/23 Ordered By: Daryl Azul Discharge Data Discharge Date/Time-TO BE ENTERED AT DEPARTURE: 03/11/23 13:59 DS: Summary Time Spent with Patient providing and/or coordinating discharge services: Less than 30 minutes Status at Discharge Functional status at discharge: uses cane/walker Overall status at discharge: patient is progressing back to baseline Mental Status: mental status grossly normal Speech and Movement: speech and movement normal Mood: congruent mood Affect: normal affect Exam Extrem Other: RLE dressing c/d/i. Intact SLR. Able to actively flex and extend. +ADF/APF/EHL/FHL. SILT DP/SP/Tib. Psych Mental Status: mental status grossly normal Speech and Movement: speech and movement normal Mood: congruent mood Affect: normal affect DS: Data Vitals/I&O Vitals and I&O: Vital Signs Temperature 99.0 F 03/10/23 12:30 Temperature Source Tympanic 03/10/23 12:30 Pulse 59 L 03/10/23 12:30 Pulse Rhythm Regular 03/10/23 11:40 Respiratory Rate 16 03/10/23 12:30 Respiratory Depth Normal 03/10/23 11:40 Blood Pressure 157/80 H 03/10/23 12:30 Blood Pressure Mean 105 03/10/23 12:30 Blood Pressure Position Supine 03/10/23 12:30 Pulse Oximetry 94 03/10/23 12:30 Oxygen Delivery Method Room Air 03/10/23 12:30 Oxygen Flow Rate 0 03/10/23 12:30 Pain Level 2 03/10/23 12:30 Comment pt. received R Adductor canal regional block, performed by KYLAH Jensen. Pt. was given 2 mg of Versed before the block. Start/ finish time - 12:30 p.m./12:36 p.m. Pt. 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 Neck pain JANIA (obstructive sleep apnea) not on CPAP or BiPAP - has not had testing recently Posterior rhinorrhea Snoring Movement disorder Hyperlipidemia Chronic fatigue syndrome Hip pain Sleep disorder Neuropathy Restless legs Pain in left knee Right upper quadrant pain Carpal tunnel syndrome of right wrist Low back pain Overweight Hand joint pain Benign essential HTN Pulmonary embolism DVT (deep venous thrombosis) Right leg pain Back pain Arthritis Surgical History History of endoscopy Status post laparoscopy Ureteroneocystostomy with cystoscopy and ureteral stent placement Status post right foot surgery Right great toe joint History of arthroscopy of left knee 03/2018 History of appendectomy 07/2021 S/P trigger finger release RRF, RMF, LMF History of kyphoplasty T12 H/O right knee surgery (05/28/10) meniscus History of carpal tunnel surgery (03/31/13) H/O colonoscopy (10/24/05) Tonsillectomy Open Carpal Tunnel release JAW SURGERY Per pt. 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
--- NOTE | 2023-03-11 11:55 | PDOC.CMDIS ---
Date of service: 03/11/23 Time of Service: 14:09 LACE Index Scoring Tool Questions: Length of Stay (in days): 1 Was the patient admitted via the E.D.?: No E.D. Visits: 0 Answers: Total Score: 1 Risk of Readmission: Low Risk Care Management Discharge Plan Reason for Hospitalization: painful right total knee replacement Discharge Plan: Bri will be discharged home with outpatient PT services to begin in 2 weeks. She will follow up with her Orthopedic surgeon and PCP and transport with her . Patient/Family Education Needs: Review of discharge instructions, limitations, follow up plan and discuss Ask Me Three.
--- NOTE | 2023-03-11 13:37 | PTTR_ITS ---
Date of service: 03/11/23 Time of Service: 13:00 PT Notes Visit Reasons: Painful right TKA Inpatient Physical Therapy Treatment Note [facility] Date: 03/11/23 PRECAUTIONS: Fall, standard, activity as tolerated, WBAT RLE with AD SUBJECTIVE: Patient reports feeling ok, R knee is a little stiff, patient feels a little nauseous OBJECTIVE: Sitting up in recliner with legs elevated, present, agreeable to therapy.? IV attached in LUE.? PAIN: none reported initially, some pain reported after therapy which patient said was contributing to the nausea. VITALS: monitored by nursing staff.? BED MOBILITY/TRANSFERS? Rolling L/R: Not assessed Supine-sit: Not assessed ? Sit-supine: Not assessed ? Sit-stand: CGA ? Stand-sit: SBA ? Bed-Chair: CGA ? Chair-bed: CGA Gait Training (02566b6): Direct one-on-one instruction and skilled instruction in: [] employing an assistive device [] modified weight-bearing status [x] movement sequencing [] turning and movement with proper form [x] Provided verbal cues for equipment management and technique [x] Provided instruction in gait pattern [] Patient education regarding pacing and breathing techniques to maximize a ctivity tolerance? GAIT? Assistive Device: FWW ? Weight bearing: WBAT LLE with AD Assist: CGA ? Distance:? 150 feet ? Deviation: antalgic gait pattern, slow ismael? STAIRS: ascends and descends 2 six inch stairs with CGA and assistance managing IV lines, verbal cues for safe gait sequence on stairs. ?Patient used bilateral rails, at home uses single rail and SPC. ? Therapeutic Exercises (82452e4): Direct one-on-one instruction in therapeutic exercises to develop strength, endurance, range of motion and flexibility. ? Exercises: Reviewed patient's HEP as assigned by DPT Kellee Stringer, with exercises as follows: * 10x heel slides * 10x SLR * 10x quad set * 10x ankle pumps * 10x seated marching ? Provided skilled instruction in proper exercise performance Provided skilled manual cues to facilitate proper muscle recruitment and/or form: facilitated VMO activation, tactile cue for appropriate SLR height ASSESSMENT:? Patient tolerates therapy well, reportedly eager to get home. PLAN: Continue global strengthening per plan of care until patient is medically cleared for discharge. TREATMENT CODE/TIME: 36 minutes beginning at 13:00
--- NOTE | 2023-03-11 16:34 | PDOC.CMDIS ---
Care Management Discharge Plan Reason for Hospitalization: painful right total knee replacement Discharge Plan: Bri will be discharged home with new orders for outpatient PT. She will follow up with her orthopedic surgeon and her plan of care and transport with family.
--- NOTE | 2023-03-11 19:00 | INDS_ITS ---
PT Notes Visit Reasons: Painful right TKA Physical Therapy Inpatient Discharge Summary Date: 03/11/2023 Dates of Service: 03/11/2023 only This is a clinical summary of care provided for the duration of dates listed above. No charge was made in the completion of this documentation. Referring Doctor: SHANIQUE Parrish PT Orders: PT CONSULT: S/p Ortho's Ortho surgery Precautions: Fall. Standard. WBAT on right LE with AD. Patient Profile/Admitting Diagnosis: Bri is a 78-year-old female with painful loose right TKA and arthrofibrosis and is status post right total knee arthroplasty revision on postoperative day 1. 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 Low back pain Movement disorder Neck pain Neuropathy JANIA (obstructive sleep apnea) not on CPAP or BiPAP - has not had testing recently Overweight Pain in left knee Posterior rhinorrhea Pulmonary embolism Restless legs Right leg pain Right upper quadrant pain Sleep disorder Snoring Surgical History?(Updated 02/26/23 @ 14:23 by Dunia Barbosa) ANKLE REPAIR (01/29/10) right ankle, ORIF BACK SURGERY H/O colonoscopy (10/24/05) H/O right knee surgery (05/28/10) meniscus HAND SURGERY Right DeQuervains release History of appendectomy 07/2021 History of arthroscopy of left knee 03/2018 History of carpal tunnel surgery (03/31/13) History of endoscopy History of kyphoplasty T12JAW SURGERY Open Carpal Tunnel release S/P trigger finger release RRF, RMF, LMF Status post laparoscopy Ureteroneocystostomy with cystoscopy and ureteral stent placement Status post right foot surgery Right great toe jointTonsillectomy Social History/Home Situation: Lives with in a private home with 3 steps to enter with rails that are far apart. Bedroom is on the second floor but can stay on the first floor as she recovers. Independent with all mobility ADL performance although had been having difficulty walking due to increasing pain in the right knee Equipment Owned/DME: FWW, SPC Subjective: NT. See most recent CUSTOMER CONSULTING MANAGER notes. Objective: General Observation: NT. See most recent CUSTOMER CONSULTING MANAGER notes. Mental Status: NT. See most recent CUSTOMER CONSULTING MANAGER notes. Pain: NT. See most recent CUSTOMER CONSULTING MANAGER notes. Vital Signs: NT. See most recent CUSTOMER CONSULTING MANAGER notes. ROM: Right Lower Extremity: Hip flexion WFL. Hip abduction WFL. Knee flexion 20 degrees to 90 degrees actively with pain at end range of extension and flexion. Ankle dorsiflexion WFL. Ankle plantarflexion WFL. Left Lower Extremity: Hip flexion WFL. Hip abduction WFL. Knee flexion WFL. Ankle dorsiflexion WFL. Ankle plantarflexion WFL. Strength: Right Lower Extremity: Hip flexors 4/5. Hip abductors 4/5. Knee flexors 3-/5. Knee extensors 3-/5. Ankle dorsiflexors 4-/5. Ankle plantarflexors 4-/5. Left Lower Extremity: Hip flexors 5/5. Hip abductors 5/5. Knee flexors 4/5. Knee extensors 4/5. Ankle dorsiflexors 4/5. Ankle plantarflexors 4/5. Bed Mobility/Transfers: Supine to sit standby assist with minimal cueing provided for using the hands for needed support, HOB at 30 degrees, complained of nausea Sit to stand contact-guard assist with verbal cueing provided to push off from edge of bed for safety Stand to sit contact-guard assist with verbal cueing needed to reach behind for armrests and to safely back up onto chair Bed to reclining chair contact-guard assist with verbal cueing needed to B hands for support Gait: Facilitated safe and correct performance of heel toe step through gait pattern on BLE with WBAT on the right LE using front wheeled walker with standby assist provided covering 225 feet to the level surface with verbal cueing provided for limb advancement, correct gait pattern, AD management, and posture. Balance: Static Sitting: Normal Dynamic Sitting: Normal Static Standing: Fair Dynamic Standing: Fair THERA ACT: Trained patient with correct performance of exercises below to maximize motor control, joint flexibility, soft tissue extensibility of the knee musculature. Access Code: [email or web address] URL: [email or web address] Date: 12/23/2022 Prepared by: Kellee Stirnger Exercises - Supine Quad Set - 1 x daily - 7 x weekly - 1 sets - 10 reps - 5 hold - Supine Heel Slide - 1 x daily - 7 x weekly - 1 sets - 10 reps - 5 hold - Supine Ankle Pumps - 1 x daily - 7 x weekly - 1 sets - 10 reps - 5 hold - Small Range Straight Leg Raise - 1 x daily - 7 x weekly - 1 sets - 10 reps - 5 hold - Seated March - 1 x daily - 7 x weekly - 1 sets - 10 reps - 5 hold Assessment: Patient requires the use of a front-wheeled walker for all mobility ADL performance to maximize independence and reduce fall risk. Mobility performance this morning mildly limited by nausea and pain level. Patient presents with clinical signs and symptoms consistent with current/admitting diagnoses that have resulted to mobility limitations, gait instability, generalized weakness, and overall ADL decline as demonstrated by the following impairment level findings: 1. Decreased strength to R knee major muscle groups 2. Impaired sitting/standing balance 3. Impaired activity tolerance 4. Limitation of joint range of motion in R knee 5. Pain as above Impairments are contributing to the following functional limitations: 1. Decline in bed mobility skills 2. Decline in transfer skills 3. Difficulty with ambulation without assistive device and physical assistance 4. Increased completion time for mobility ADL performance 5. Increased risk for falls 6. Difficulty with managing steps alone safely Goals: Goals X1 week 1. Supine-Sit independent NOT MET 2. Sit-Supine independent NOT MET 3. Sit-Stand independent NOT MET 4. Stand-Sit independent with FWW NOT MET 5. Bed-Chair independent with FWW NOT MET 6. Chair-Bed independent with FWW NOT MET 7. Independent gait on level surface with use of FWW for at least 300 feet without report of pain nor dyspnea NOT MET 8. Independent stair negotiation while holding onto 1 rail and using SPC for at least 3 steps without report of pain nor dyspnea NOT MET 9. Independent with home exercise program NOT MET 10. Good static and dynamic standing balance/tolerance NOT MET DISCHARGE RECOMMENDATIONS: [] Home with no services [] [X] Home with services. Home when medically cleared by orthopedic surgeon. Recommend outpatient PT services in order to optimize functional mobility outcomes and facilitate return to independent community ambulation without an assistive device. [] Home with outpatient PT [] [] SNF for continued rehabilitation [] [] Longterm Care [] [] SNF versus LTC based on ability to participate and progress [] TREATMENT CODE/TIME: NC Thank you for the opportunity to participate in the care of this patient. Kellee Stringer PT, DPT, CLT [facility] [place], [place]
== END 2023-03-11 13:59 | disposition home or self-care (01) ==
LOC: PDS 13:38 → MS 03-11 08:55 → PDS 03-11 09:24
PROVIDERS: Admitting Provider Student in an Organized Health Care Education/Training Program; PCP Internal Medicine; Visit Provider Student in an Organized Health Care Education/Training Program
PROC: (CPT 27487; principal; 2023-03-10 14:30)
DX: T84.84XA Pain due to internal orthopedic prosthetic devices, implants and grafts, initial encounter (principal); S82.191A Other fracture of upper end of right tibia, initial encounter for closed fracture; M97.11XA Periprosthetic fracture around internal prosthetic right knee joint, initial encounter; X58.XXXA Exposure to other specified factors, initial encounter; I10 Essential (primary) hypertension; E78.5 Hyperlipidemia, unspecified; Z86.718 Personal history of other venous thrombosis and embolism; G25.81 Restless legs syndrome; M54.50 Low back pain, unspecified; G47.33 Obstructive sleep apnea (adult) (pediatric); G62.9 Polyneuropathy, unspecified; G47.9 Sleep disorder, unspecified; Z86.711 Personal history of pulmonary embolism; Z79.01 Long term (current) use of anticoagulants; Z79.899 Other long term (current) drug therapy
CPT/HCPCS: 27487; C1776; 76942; 80048; 85027; 87635; 97110; 97116; 97162; 97530; 73560; G0378; J0690; J1100; J1790; J1885; J2250; J2371; J2405; J8540

== ENCOUNTER → 2023-03-23 11:07 | Outpatient (BNVA) | payer MEDICARE, SELFPAY | PROVIDERS: PCP Internal Medicine; Referring Provider Internal Medicine; Visit Provider Student in an Organized Health Care Education/Training Program | DX: Z47.1 Aftercare following joint replacement surgery (principal); Z96.651 Presence of right artificial knee joint; T84.84XD Pain due to internal orthopedic prosthetic devices, implants and grafts, subsequent encounter; T84.032D Mechanical loosening of internal right knee prosthetic joint, subsequent encounter ==

== ENCOUNTER 2023-04-20 13:48 | Outpatient (CLI) | payer MEDICARE, SELFPAY ==
--- NOTE | 2023-04-20 11:00 | DI.RAD_ITS ---
Exam(s) XR KNEE RT 2V AP,LAT XR TIB/FIB RT EXAM: XR TIB/FIB RT CLINICAL HISTORY: eval R distal tibia pain. TECHNIQUE: 2D digital imaging was performed. Two views of the knee and tibia and fibula. COMPARISON: CR XR KNEE COMPLETE MIN 4V LT from 04/07/2022 CR XR KNEE 3V RT from 04/21/2022 CR XR KNEE 3V RT from 07/14/2022 CR XR KNEE RT 4V AP,LAT,TREE,PAT from 12/15/2022 CR XR KNEE RT 2V AP,LAT from 03/10/2023 CR XR KNEE RT 2V AP,LAT from 04/20/2023 FINDINGS: BONES: No acute fracture is present. No bony destructive lesion is seen. There has been no change in the revised total knee prosthesis. There are no suspicious bony lucencies. Fixation plate noted shelia ng the distal fibula. Two screws noted in medial malleolus. Ankle mortise appears intact. No talar dome defect. Calcaneal enthesophytes SOFT TISSUE: Some anterior soft tissue swelling remains present. IMPRESSION: No change in revised knee prosthesis. Hardware in distal tibia and fibula. DATA REPOSITORY: RADIATION DOSE DELIVERED:
== END 2023-04-20 13:49 | disposition home or self-care (01) ==
LOC: DIORS 13:48
PROVIDERS: PCP Internal Medicine
DX: Z96.651 Presence of right artificial knee joint; Z47.1 Aftercare following joint replacement surgery; T84.84XD Pain due to internal orthopedic prosthetic devices, implants and grafts, subsequent encounter; T84.032D Mechanical loosening of internal right knee prosthetic joint, subsequent encounter
CPT/HCPCS: 73560; 73590

== ENCOUNTER 2024-04-04 15:21 | Outpatient (CLI) | payer MEDICARE, SELFPAY ==
--- NOTE | 2024-04-04 13:15 | DI.RAD_ITS ---
Exam(s) XR KNEE RT 2V AP,LAT EXAM: XR KNEE RT 2V AP,LAT INDICATION: ANNUAL F/U R TKA. COMPARISON: CR XR KNEE RT 4V AP,LAT,TREE,PAT from 12/15/2022 CR XR KNEE RT 2V AP,LAT from 03/10/2023 CR XR TIB/FIB RT from 04/20/2023 CR XR KNEE RT 2V AP,LAT from 04/20/2023 TECHNIQUE: 2D digital imaging was performed. Two views. FINDINGS: Stable alignment of revised knee prosthesis. No abnormal surrounding bony lucencies. DATA REPOSITORY: RADIATION DOSE DELIVERED:
--- NOTE | 2024-04-04 13:52 | DI.RAD_ITS ---
Exam(s) XR HIP RT COMPLETE AP PELVIS EXAM: XR HIP RT COMPLETE AP PELVIS CLINICAL HISTORY: right hip pain. TECHNIQUE: 2D digital imaging was performed. Two views COMPARISON: CR ORTHO PELVIS AP VIEW from 12/20/2018 FINDINGS: BONES: No acute fracture is present. No bony destructive lesion is seen. Enthesophytes at the greater trochanters and iliac wings.. JOINTS: No dislocation present. Mild right hip joint space narrowing. Moderate spurring of the rig ht acetabulum. Mild spurring at the right femoral head. Mild spurring at the left acetabulum. SOFT TISSUE: Normal. IMPRESSION: Moderate degenerative changes of the right hip, without significant change from prior. DATA REPOSITORY: RADIATION DOSE DELIVERED:
== END 2024-04-04 15:22 | disposition home or self-care (01) ==
LOC: DIORS 15:22
PROVIDERS: PCP Internal Medicine; Referring Provider Internal Medicine; Visit Provider Student in an Organized Health Care Education/Training Program
DX: T84.84XD Pain due to internal orthopedic prosthetic devices, implants and grafts, subsequent encounter (principal); M16.11 Unilateral primary osteoarthritis, right hip; T84.032D Mechanical loosening of internal right knee prosthetic joint, subsequent encounter; Z96.651 Presence of right artificial knee joint
CPT/HCPCS: 99213; 73502; 73560

== ENCOUNTER → 2024-04-15 08:46 | Outpatient (BNVA) | payer MEDICARE, SELFPAY | PROVIDERS: PCP Internal Medicine; Referring Provider Internal Medicine | DX: M16.11 Unilateral primary osteoarthritis, right hip (principal) | CPT/HCPCS: 20611; J1010 ==

== ENCOUNTER 2024-08-09 09:01 | Outpatient (CLI) | payer MEDICARE, SELFPAY ==
--- NOTE | 2024-08-09 06:00 | DI.RAD_ITS ---
Exam(s) XR PAIN CLINIC LUMBAR SP 2V EXAM: XR PAIN CLINIC LUMBAR SP 2V CLINICAL HISTORY: DX: Lumbar Radiculopathy TECHNIQUE: 2D and realtime digital imaging was performed. CONTRAST MATERIAL: Refer to procedure report. COMPARISON: No exams were available for comparison FINDINGS: Fluoroscopy was provided for Dr. Hodgson during the performance of a lumbar epidural steroid injecti on. Please refer to the procedure report for complete details. Ka,r=9.46 mGy IMPRESSION: RADIATION DOSE DELIVERED: 0.0 0.0 0
[2024-08-09 09:27] VITALS: BP 153/85; PULSE 68; RESP 18; TEMP 36.2; O2SAT 96
--- NOTE | 2024-08-09 09:35 | PDOC.PAIN ---
Date of service: 08/09/24 Time of Service: 10:09 Pain Managment Procedure Note Procedure Note Procedure Note: Lumbar Interlaminar Epidural Steroid Injection ? Location: L5-S1 ? Pre-procedure Diagnosis: M54.16- Radiculopathy, LUMBAR region ? Post-procedure Diagnosis:? The same as above ? Sedation:? ? None ? Medication: Depo-Medrol 80 mg, Omnipaque 1 mL ? Estimated blood loss:? less than 2 cc ? Surgeon:? Gómez Hodgson MD COMMENT: Patient has spinal stenosis, with right radicular pain ? Procedure Detail:? The procedure and potential risks were explained to the patient and informed written consent was obtained. The patient was escorted to the procedure room and placed in the prone position. Pillows were utilized for proper positioning and comfort. Time out was performed in the procedure room with nursing staff confirming the patient's identity, procedure to be performed, allergies, and any blood thinning or anti-platelet medications.? The patient's neck and upper back was prepped with ChloraPrep and draped in a sterile fashion. Sterile technique was maintained throughout the procedure.? Sterile gloves were used, a face mask was worn, and new single dose vials of all medications were used with the top being swabbed with alcohol and given time to dry prior to withdrawal of medication. Lidocane 1% was used to anesthetize the skin.Using a 25-gauge 1.5 inch needle, 1% lidocaine was instilled into the superficial soft tissue overlying the targeted area to provide local anesthesia. With fluoroscopic guidance, a 17 -gauge Tuohy needle was advanced toward the interlaminar space of L5-S1. The needle was then advance through the ligamentum flavum and into the posterior epidural space using the loss of resistance technique. Correct needle placement was confirmed through review of the AP and contralateral oblique fluoroscopic views. A 19-gauge arrow catheter was threaded cephalad and to the Right L4 Following negative aspiration, one cc of Omnipaque 240 contrast was injected which confirmed good flow throughout the epidural space and no evidence of vascular flow or flow into adjacent compartments. Next, following negative aspiration, 1 cc's of normal saline and 80mg of Depo-Medrol was injected. The needle was gently removed. The patient tolerated the procedure well and was transported to the recovery area for observation and discharge instructions. Permanent images saved and recorded. PAIN PRE-PROCEDURE 08/08 POST-PROCEDURE 08/08 Plan:? Follow up prn. COMMENT: Repeat as needed. Consider surgical evaluation if not improving Coding Conscious Sedation used for procedure: No CPT Codes: Inj Spine L/S w/Imaging - 15461 ([id number] ~G) Additional Codes: Date of Service (92770) Date of service: 08/09/24
[2024-08-09 09:49] VITALS: PULSE 72; O2SAT 94
[2024-08-09 09:50] VITALS: PULSE 66; O2SAT 96
[2024-08-09 10:00] VITALS: PULSE 67; O2SAT 97
[2024-08-09] MEDS: Epidural Tray 1 EACH MC (10:10)
[2024-08-09] MEDS: methylPREDNISolone ACETATE 40 MG/ML VIAL IJ (10:10)
[2024-08-09] MEDS: Omnipaque 240 MG/ML 50 ML BTL IJ (10:10)
== END 2024-08-09 09:02 | disposition home or self-care (01) ==
LOC: PC 09:02
PROVIDERS: PCP Internal Medicine; Visit Provider Anesthesiology Pain Medicine
DX: M54.50 Low back pain, unspecified (principal); M54.16 Radiculopathy, lumbar region
CPT/HCPCS: 62323; 72100; J1010; Q9967